=== PATIENT | male | born 1945 | race Caucasian/White ===

== ENCOUNTER 2021-11-26 10:39 | Observation (INO) ==
[2021-11-26] MEDS ORDERED: NITROGLYCERIN SL 0.4 MG TABLET SL ONE (11:08)
[2021-11-26] MEDS ORDERED: NITROGLYCERIN SL 0.4 MG TABLET SL STA (11:10)
[2021-11-26] MEDS ORDERED: NITROGLYCERIN SL 0.4 MG TABLET SL PRN (11:16)
[2021-11-26 11:30] LABS: Basophils % 0.5 % (0.0-0.8); Eosinophils # 0.2 10*3/uL (0.0-0.87); Eosinophils % 2.3 % (0.00-10.9); Hematocrit 43.2 VOL% (42.0-52.0); Hemoglobin 14.6 GM/DL (14.0-18.0); Immature Granulocytes % 0.3 %; Immature Granulocytes Absolute 0.02 #; Lymphocytes # 2.4 10*3/uL (1.4-4.0); Lymphocytes % 30.9 % (21.2-54.2); Mean Corpuscular HGB Conc 33.8 GM/DL (32-36); Mean Platelet Volume 11.3 FL (9.6-12.0); Monocytes % 8.1 % (1.7-12.7); Neutrophils % 57.9 % (38.7-73.9); Platelet Count 238 T/CUMM (130-400); White Blood Count 7.9 T/CUMM (4-12)
[2021-11-26 11:59] LABS: Albumin 3.8 G/DL (3.4-5.0); Bilirubin,Total 1.8 MG/DL (0.20-1.00); Osmolality,Calculated 278.5 MOS/KG (273-304); Potassium 3.8 MMOL/L (3.5-5.1); Total Protein 7.1 G/DL (6.4-8.2)
[2021-11-26 12:05] LABS: Anisocytosis Slight; Macrocytosis 1+; Platelet Estimate Normal
[2021-11-26] MEDS ORDERED: DEXTROSE 10% 250 ML BAG IV PRN (12:54)
[2021-11-26] MEDS ORDERED: GLUCAGON 1 MG VIAL IM PRN (12:54)
[2021-11-26] MEDS ORDERED: ACETAMINOPHEN 325 MG TABLET PO PRN (12:55)
[2021-11-26] MEDS ORDERED: hydrALAZINE 20 MG/1 ML VIAL IV PRN (12:55)
[2021-11-26] MEDS ORDERED: ENOXAPARIN 40 MG/0.4 ML SYRINGE SUBCUT SCH (13:00)
[2021-11-26] MEDS ORDERED: ASPIRIN 325 MG TABLET PO SCH (13:30)
[2021-11-26] MEDS: amLODIPine 5 MG TABLET PO SCH (15:05)
[2021-11-26] MEDS: INSULIN LISPRO 100 UNIT/ML SUBCUT SCH ×2 (17:36→20:51)
[2021-11-26] MEDS: ENOXAPARIN 80 MG/0.8 ML SYRINGE SUBCUT SCH (20:50)
[2021-11-26] MEDS ORDERED: APIXABAN 5 MG TABLET PO SCH (21:00)
[2021-11-27 05:19] LABS: Basophils # 0.1 10*3/uL (0.0-0.2); Basophils % 0.6 % (0.0-0.8); Eosinophils # 0.2 10*3/uL (0.0-0.87); Eosinophils % 2.6 % (0.00-10.9); Hematocrit 40.6 VOL% (42.0-52.0); Hemoglobin 13.5 GM/DL (14.0-18.0); Immature Granulocytes % 0.4 %; Immature Granulocytes Absolute 0.03 #; Lymphocytes # 2.8 10*3/uL (1.4-4.0); Lymphocytes % 34.8 % (21.2-54.2); Mean Corpuscular HGB Conc 33.3 GM/DL (32-36); Mean Corpuscular Volume 95.5 FL (87-102); Mean Platelet Volume 11.7 FL (9.6-12.0); Monocytes % 9.2 % (1.7-12.7); Neutrophils % 52.4 % (38.7-73.9); Platelet Count 211 T/CUMM (130-400); Red Blood Count 4.25 MC/CUMM (3.8-5.5); Red Cell Distribution Width 13.1 % (9.3-17.3)
[2021-11-27 05:54] LABS: Anisocytosis 1+; Macrocytosis Slight; Platelet Estimate Normal
[2021-11-27 06:05] LABS: Calcium 8.5 MG/DL (8.5-10.1); Potassium 3.9 MMOL/L (3.5-5.1); Risk Ratio 3.02; VLDL Cholesterol 26.8 MG/DL
[2021-11-27] MEDS: ENOXAPARIN 80 MG/0.8 ML SYRINGE SUBCUT SCH ×2 (10:34→21:12)
[2021-11-27] MEDS: INSULIN LISPRO 100 UNIT/ML SUBCUT SCH ×4 (10:34→20:37)
[2021-11-27] MEDS: NICOTINE 21 MG/24 HR PATCH TRANSDERM SCH (10:35)
[2021-11-27] MEDS: amLODIPine 5 MG TABLET PO SCH (11:05)
[2021-11-27] MEDS: PANTOPRAZOLE 40 MG TABLET PO SCH (11:05)
[2021-11-27] MEDS: ASPIRIN EC 81 MG TABLET PO SCH (11:05)
[2021-11-27] MEDS: TAMSULOSIN 0.4 MG CAPSULE PO SCH (12:23)
[2021-11-27] MEDS: VENLAFAXINE 100 MG TABLET PO SCH ×2 (14:46→21:12)
[2021-11-27] MEDS: ONDANSETRON 4 MG/2 ML VIAL IV PRN (17:55)
[2021-11-27] MEDS: ROSUVASTATIN 20 MG TABLET PO SCH (21:12)
[2021-11-28 05:09] LABS: Basophils % 0.5 % (0.0-0.8); Eosinophils # 0.1 10*3/uL (0.0-0.87); Eosinophils % 1.2 % (0.00-10.9); Hematocrit 39.8 VOL% (42.0-52.0); Hemoglobin 13.7 GM/DL (14.0-18.0); Immature Granulocytes % 0.3 %; Immature Granulocytes Absolute 0.02 #; Lymphocytes # 2.4 10*3/uL (1.4-4.0); Lymphocytes % 31.2 % (21.2-54.2); Mean Corpuscular HGB Conc 34.4 GM/DL (32-36); Mean Corpuscular Volume 94.3 FL (87-102); Mean Platelet Volume 11.8 FL (9.6-12.0); Monocytes % 9.2 % (1.7-12.7); Neutrophils % 57.6 % (38.7-73.9); Platelet Count 216 T/CUMM (130-400); Red Blood Count 4.22 MC/CUMM (3.8-5.5); Red Cell Distribution Width 12.7 % (9.3-17.3); White Blood Count 7.8 T/CUMM (4-12)
[2021-11-28 05:33] LABS: Calcium 8.8 MG/DL (8.5-10.1); Osmolality,Calculated 278.5 MOS/KG (273-304); Potassium 3.5 MMOL/L (3.5-5.1)
[2021-11-28] MEDS: ONDANSETRON 4 MG/2 ML VIAL IV PRN (08:56)
[2021-11-28] MEDS: NICOTINE 21 MG/24 HR PATCH TRANSDERM SCH (10:30)
[2021-11-28] MEDS: FENOFIBRATE 160 MG TABLET PO SCH (10:31)
[2021-11-28] MEDS: ASPIRIN EC 81 MG TABLET PO SCH (10:31)
[2021-11-28] MEDS: INSULIN LISPRO 100 UNIT/ML SUBCUT SCH ×4 (10:31→20:50)
[2021-11-28] MEDS: amLODIPine 5 MG TABLET PO SCH (10:31)
[2021-11-28] MEDS: PANTOPRAZOLE 40 MG TABLET PO SCH (10:31)
[2021-11-28] MEDS: KETOROLAC 30 MG/1 ML VIAL IV PRN ×2 (10:32→17:46)
[2021-11-28] MEDS: VENLAFAXINE 100 MG TABLET PO SCH (11:06)
[2021-11-28] MEDS: TAMSULOSIN 0.4 MG CAPSULE PO SCH (11:06)
[2021-11-28] MEDS: ENOXAPARIN 80 MG/0.8 ML SYRINGE SUBCUT SCH (11:07)
[2021-11-28] MEDS: ROSUVASTATIN 20 MG TABLET PO SCH (20:50)
[2021-11-28] MEDS: APIXABAN 5 MG TABLET PO SCH (20:50)
[2021-11-29 05:10] LABS: Basophils % 0.2 % (0.0-0.8); Eosinophils # 0.1 10*3/uL (0.0-0.87); Eosinophils % 0.7 % (0.00-10.9); Hemoglobin 13.8 GM/DL (14.0-18.0); Immature Granulocytes % 0.2 %; Immature Granulocytes Absolute 0.02 #; Lymphocytes # 2.2 10*3/uL (1.4-4.0); Lymphocytes % 26.8 % (21.2-54.2); Mean Corpuscular HGB Conc 34.5 GM/DL (32-36); Mean Corpuscular Volume 92.6 FL (87-102); Mean Platelet Volume 11.3 FL (9.6-12.0); Monocytes % 9.6 % (1.7-12.7); Neutrophils % 62.5 % (38.7-73.9); Platelet Count 222 T/CUMM (130-400); Red Blood Count 4.32 MC/CUMM (3.8-5.5); Red Cell Distribution Width 12.5 % (9.3-17.3)
[2021-11-29 05:24] LABS: Calcium 8.6 MG/DL (8.5-10.1); Osmolality,Calculated 280.5 MOS/KG (273-304); Potassium 3.5 MMOL/L (3.5-5.1)
[2021-11-29] MEDS: INSULIN LISPRO 100 UNIT/ML SUBCUT SCH (09:26)
[2021-11-29] MEDS: APIXABAN 5 MG TABLET PO SCH ×2 (09:26→20:21)
[2021-11-29] MEDS: NICOTINE 21 MG/24 HR PATCH TRANSDERM SCH (09:26)
[2021-11-29] MEDS: ASPIRIN EC 81 MG TABLET PO SCH (09:27)
[2021-11-29] MEDS: FENOFIBRATE 160 MG TABLET PO SCH (09:27)
[2021-11-29] MEDS: PANTOPRAZOLE 40 MG TABLET PO SCH (09:27)
[2021-11-29] MEDS: amLODIPine 5 MG TABLET PO SCH (09:27)
[2021-11-29] MEDS: LACTATED RINGERS 1,000 ML IV SCH (12:36)
[2021-11-29] MEDS: KETOROLAC 30 MG/1 ML VIAL IV PRN ×2 (12:40→20:20)
[2021-11-29] MEDS: traZODone 50 MG TABLET PO SCH (20:21)
[2021-11-29] MEDS: ROSUVASTATIN 20 MG TABLET PO SCH (20:21)
[2021-11-29] MEDS: TAMSULOSIN 0.4 MG CAPSULE PO SCH (20:22)
[2021-11-30 06:07] LABS: Basophils % 0.2 % (0.0-0.8); Eosinophils # 0.1 10*3/uL (0.0-0.87); Hematocrit 39.5 VOL% (42.0-52.0); Hemoglobin 13.7 GM/DL (14.0-18.0); Immature Granulocytes % 0.4 %; Immature Granulocytes Absolute 0.05 #; Lymphocytes # 2.3 10*3/uL (1.4-4.0); Lymphocytes % 16.3 % (21.2-54.2); Mean Corpuscular HGB Conc 34.7 GM/DL (32-36); Mean Corpuscular Volume 93.2 FL (87-102); Mean Platelet Volume 11.6 FL (9.6-12.0); Monocytes % 6.6 % (1.7-12.7); Neutrophils % 75.5 % (38.7-73.9); Platelet Count 215 T/CUMM (130-400); Red Blood Count 4.24 MC/CUMM (3.8-5.5); Red Cell Distribution Width 12.7 % (9.3-17.3)
[2021-11-30 06:21] LABS: Calcium 9.2 MG/DL (8.5-10.1); Osmolality,Calculated 276.8 MOS/KG (273-304); Potassium 3.1 MMOL/L (3.5-5.1)
[2021-11-30] MEDS: KETOROLAC 30 MG/1 ML VIAL IV PRN (07:57)
[2021-11-30] MEDS: APIXABAN 5 MG TABLET PO SCH ×2 (09:28→21:44)
[2021-11-30] MEDS: ASPIRIN EC 81 MG TABLET PO SCH (09:28)
[2021-11-30] MEDS: FENOFIBRATE 160 MG TABLET PO SCH (09:29)
[2021-11-30] MEDS: PANTOPRAZOLE 40 MG TABLET PO SCH (09:29)
[2021-11-30] MEDS: amLODIPine 5 MG TABLET PO SCH (09:29)
[2021-11-30] MEDS: NICOTINE 21 MG/24 HR PATCH TRANSDERM SCH (09:31)
[2021-11-30] MEDS: POTASSIUM CHLORIDE 20 MEQ TABLET PO SCH ×2 (11:21→16:30)
[2021-11-30] MEDS: LACTATED RINGERS 1,000 ML IV SCH ×2 (16:30→16:58)
[2021-11-30] MEDS: TAMSULOSIN 0.4 MG CAPSULE PO SCH (21:44)
[2021-11-30] MEDS: ROSUVASTATIN 20 MG TABLET PO SCH (21:44)
[2021-11-30] MEDS: traZODone 50 MG TABLET PO SCH (21:44)
[2021-11-30] MEDS: ALPRAZolam 0.5 MG TABLET PO SCH (21:44)
[2021-12-01] MEDS: LACTATED RINGERS 1,000 ML IV SCH ×2 (04:29→05:54)
[2021-12-01 08:17] LABS: Basophils % 0.4 % (0.0-0.8); Eosinophils # 0.3 10*3/uL (0.0-0.87); Eosinophils % 3.8 % (0.00-10.9); Hematocrit 42.1 VOL% (42.0-52.0); Hemoglobin 14.2 GM/DL (14.0-18.0); Immature Granulocytes % 0.3 %; Immature Granulocytes Absolute 0.02 #; Lymphocytes # 2.1 10*3/uL (1.4-4.0); Lymphocytes % 28.2 % (21.2-54.2); Mean Corpuscular HGB Conc 33.7 GM/DL (32-36); Mean Corpuscular Volume 95.5 FL (87-102); Mean Platelet Volume 11.3 FL (9.6-12.0); Monocytes % 9.4 % (1.7-12.7); Neutrophils % 57.9 % (38.7-73.9); Platelet Count 194 T/CUMM (130-400); Red Blood Count 4.41 MC/CUMM (3.8-5.5); Red Cell Distribution Width 13.1 % (9.3-17.3); White Blood Count 7.4 T/CUMM (4-12)
[2021-12-01 08:33] LABS: Osmolality,Calculated 284.1 MOS/KG (273-304)
[2021-12-01] MEDS: FENOFIBRATE 160 MG TABLET PO SCH (09:26)
[2021-12-01] MEDS: NICOTINE 21 MG/24 HR PATCH TRANSDERM SCH (09:26)
[2021-12-01] MEDS: amLODIPine 5 MG TABLET PO SCH (09:26)
[2021-12-01] MEDS: ALPRAZolam 0.5 MG TABLET PO SCH (09:26)
[2021-12-01] MEDS: PANTOPRAZOLE 40 MG TABLET PO SCH (09:26)
[2021-12-01] MEDS: ASPIRIN EC 81 MG TABLET PO SCH (09:26)
[2021-12-01] MEDS: APIXABAN 5 MG TABLET PO SCH (09:26)
[2021-12-01 15:27] VITALS: BP 146/69
== END 2021-12-01 15:00 | disposition home or self-care (01) ==
LOC: N.ED 10:39 → N.EDINP 10:39 → SUATTDRO 12:54 → N.TELEN 15:20 → SUATTDRO 11-29 09:58
PROVIDERS: ADMIT Internal Medicine; ATTEND Internal Medicine

== ENCOUNTER 2022-06-03 15:40 | Observation (INO) ==
[2022-06-03 16:33] LABS: Basophils # 0.1 10*3/uL (0.0-0.2); Basophils % 0.8 % (0.0-0.8); Eosinophils # 0.3 10*3/uL (0.0-0.87); Eosinophils % 3.5 % (0.00-10.9); Hematocrit 41.9 VOL% (42.0-52.0); Hemoglobin 13.9 GM/DL (14.0-18.0); Immature Granulocytes % 0.5 %; Immature Granulocytes Absolute 0.04 #; Lymphocytes # 1.9 10*3/uL (1.4-4.0); Lymphocytes % 25.7 % (21.2-54.2); Mean Corpuscular HGB Conc 33.2 GM/DL (32-36); Mean Corpuscular Volume 98.6 FL (87-102); Mean Platelet Volume 10.4 FL (9.6-12.0); Monocytes # 0.6 10*3/uL (0.11-0.8); Monocytes % 8.3 % (1.7-12.7); Neutrophils % 61.2 % (38.7-73.9); Platelet Count 304 T/CUMM (130-400); Red Blood Count 4.25 MC/CUMM (3.8-5.5); Red Cell Distribution Width 14.1 % (9.3-17.3); White Blood Count 7.5 T/CUMM (4-12)
[2022-06-03 16:45] LABS: Alanine Aminotransferase 22 U/L (16-61); Albumin 3.3 G/DL (3.4-5.0); Alkaline Phosphatase 43 U/L (45-117); Aspartate Amino Transferase 14 U/L (0-37); Bilirubin,Total < 0.39 MG/DL (0.20-1.00); Blood Urea Nitrogen 18 MG/DL (7-18); Calcium 9.3 MG/DL (8.5-10.1); Carbon Dioxide 24 MMOL/L (21-32); Chloride 110 MMOL/L (98-107); Glucose 114 MG/DL (74-106); Osmolality,Calculated 281.4 MOS/KG (273-304); Sodium 140 MMOL/L (136-145); Total Protein 6.8 G/DL (6.4-8.2)
[2022-06-03 17:03] LABS: Bilirubin,Urine Negative (Negative); Blood, Urine Negative (Negative); Glucose,Urine (UA) Negative (Negative); Ketones,Urine Negative (Negative); Mucus,Urine Occasional /LPF (Occasional); Nitrite,Urine Negative (Negative); Protein,Urine Negative (Negative); RBC,Urine 4 /HPF (0-4); Squamous Epithelial Cell,Urine Occasional /HPF (0-10); Urine Appearance Clear (Clear); Urine Color Yellow (Yellow); Urine Urobilinogen 0.2 eU/dL (<2.0)
[2022-06-03 17:18] LABS: INR 0.9; PT Patient Result 10.3 SECS (10.1-12.1); Partial Thromboplastin Time 25.1 SECS (23.7-32.9)
[2022-06-03 17:24] LABS: Barbiturates Screen,Urine Negative (Negative); Benzodiazepines Screen,Urine Negative (Negative); Cannabinoid Screen,Urine Negative (Negative); Opiate Screen,Urine Positive (Negative); Phencyclidine Screen,Urine Negative (Negative)
[2022-06-03] MEDS ORDERED: GABAPENTIN 400 MG CAPSULE PO PRN (19:00)
[2022-06-03] MEDS ORDERED: LABETALOL 20 MG/4 ML SYRINGE IV PRN (19:00)
[2022-06-03] MEDS ORDERED: ROSUVASTATIN 20 MG TABLET PO SCH (21:00)
[2022-06-03] MEDS: APIXABAN 5 MG TABLET PO SCH (21:32)
[2022-06-03] MEDS: CIPROFLOXACIN 500 MG TABLET PO SCH (21:35)
[2022-06-03] MEDS: NON-FORMULARY MEDICATION (Vit C,E-Zn-Coppr-Lutein-Zeaxan [Preservision Areds-2] 250-90-40- PO SCH (21:35)
[2022-06-03] MEDS ORDERED: ZALEPLON 5 MG CAPSULE PO PRN (22:11)
[2022-06-04 01:58] LABS: Basophils # 0.1 10*3/uL (0.0-0.2); Basophils % 0.6 % (0.0-0.8); Eosinophils # 0.2 10*3/uL (0.0-0.87); Eosinophils % 2.6 % (0.00-10.9); Hematocrit 39.5 VOL% (42.0-52.0); Hemoglobin 13.2 GM/DL (14.0-18.0); Immature Granulocytes % 0.3 %; Immature Granulocytes Absolute 0.03 #; Lymphocytes # 2.3 10*3/uL (1.4-4.0); Mean Corpuscular HGB Conc 33.4 GM/DL (32-36); Mean Corpuscular Volume 98.3 FL (87-102); Mean Platelet Volume 10.5 FL (9.6-12.0); Monocytes # 0.8 10*3/uL (0.11-0.8); Monocytes % 8.8 % (1.7-12.7); Neutrophils % 62.7 % (38.7-73.9); Platelet Count 286 T/CUMM (130-400); Red Blood Count 4.02 MC/CUMM (3.8-5.5); Red Cell Distribution Width 13.9 % (9.3-17.3); White Blood Count 9.1 T/CUMM (4-12)
[2022-06-04 02:20] LABS: Risk Ratio 7.51; VLDL Cholesterol 76.4 MG/DL
[2022-06-04] MEDS: APIXABAN 5 MG TABLET PO SCH (08:21)
[2022-06-04] MEDS ORDERED: LORazepam 1 MG TABLET PO ONE (08:59)
[2022-06-04] MEDS ORDERED: TAMSULOSIN 0.4 MG CAPSULE PO SCH (09:00)
[2022-06-04] MEDS ORDERED: ASPIRIN CHEW 81 MG TABLET PO SCH (09:00)
[2022-06-04] MEDS ORDERED: FENOFIBRATE 160 MG TABLET PO SCH (09:00)
[2022-06-04] MEDS: CIPROFLOXACIN 500 MG TABLET PO SCH (09:21)
[2022-06-04] MEDS: NON-FORMULARY MEDICATION (Vit C,E-Zn-Coppr-Lutein-Zeaxan [Preservision Areds-2] 250-90-40- PO SCH (09:22)
[2022-06-04] MEDS ORDERED: ONDANSETRON 4 MG/2 ML VIAL IV PRN (11:33)
[2022-06-04 14:30] VITALS: BP 159/71
[2022-06-04] MEDS ORDERED: ATORVASTATIN 80 MG TABLET PO SCH (21:00)
== END 2022-06-04 18:28 | disposition home or self-care (01) ==
LOC: EDUNIT# → EDBD → N.ED 15:40 → N.EDINP 15:40 → N.2W 20:49
PROVIDERS: ADMIT Internal Medicine; ATTEND Internal Medicine